=== PATIENT | male | born 1970 | race Caucasian/White ===

== ENCOUNTER 2023-01-12 08:52 | Emergency (ER) | payer SELFPAY ==
[2023-01-12 08:59] VITALS: BP 162/75; PULSE 76; RESP 16; TEMP 36.5; O2SAT 99
--- NOTE | 2023-01-12 09:14 | ED_ITS ---
Documented by User: BRENNON Rivera 01/12/23 12:00 HPI - Skin/Abscess/Foreign Bdy General: Chief complaint: Skin/Abscess/Foreign Body Stated complaint: Cracked skin Time Seen by Provider: 01/12/23 09:08 Source: patient Mode of arrival: ambulatory Limitations: no limitations History of Present Illness: Patient is a very nice 52-year-old male who presents to ED today along with his for concerns of a skin rash/skin changes. Patient states a few months ago he began noticing some intermittent/sporadic areas of dry skin/flaking that he would often itch/scratch. He states it seemed to respond well to [id number] hydrocortisone cream. He states over the past week or so he has began noticing a diffuse erythematous, painful, skin sloughing and blistering rash. No systemic symptoms. He has not had any new medications. He has no known past medical history. No concerning environmental exposures such as chemicals, pesticides, etc. MD complaint: rash and lesion Onset (ago): day(s) Tetanus up to date: yes Location: generalized Severity: severe Quality: burning, constant and pruritic Pain Consistency: constant Relieving factors: none Exacerbating factors: none Context: none Associated symptoms: Reports no associated symptoms; Deny chills or fever(s) Treatments prior to arrival: OTC topical medication Review of Systems Const: Denies: fever(s), chills, body aches, fatigue or malaise Card: Denies: chest pain Resp: Denies: dyspnea GI: Denies: abdominal pain Musc: Denies: neck pain, back pain, extremity pain or joint pain Skin/Breast: Reports: rash, erythema, skin pain, skin tenderness, new lesions, changing lesions and changes in skin color Neuro: Denies: headache(s), numbness in extremities, weakness in extremities, sensory changes or dizziness Physical Exam Const: COMMON NORMALS: no acute distress, average body habitus, patient oriented x3, no limitations, healthy appearing, alert and well nourished GENERAL APPEARANCE: cooperative ORIENTATION/CONSCIOUSNESS: Yes awake, Yes oriented to person, Yes oriented to place and Yes oriented to time HENMT: COMMON NORMALS: normocephalic and atraumatic HEAD & SCALP: normal to inspection, normocephalic and atraumatic FACE & SINUS: normal facial exam (a part from skin flaking) MOUTH: Normal oral and palatal mucosa present, lip normal, tongue normal and other (no intraoral involvement noted) Eye: GENERAL EYE: appearance normal, both eyes and all related structures Neck/C-Spine: COMMON NORMALS: no lymphadenopathy Resp: COMMON NORMALS: normal respiratory effort and clear to auscultation bilaterally AUSCULTATION: clear to auscultation bilaterally Cardio: COMMON NORMALS: regular rate and regular rhythm RATE: regular rate RHYTHM: regular rhythm Extremity: COMMON NORMALS: full ROM, capillary refill normal and no pedal edema NARRATIVE EXTREMITY EXAM: see skin documentation below GENERAL: Yes normal exam except as noted Neuro: GREG COMA SCALE: document GCS findings [place] coma scale eye opening: Spontaneous Greg coma scale verbal response: Orientated [place] coma scale motor response: Obey commands [place] coma scale total score: 15 COMMON NORMALS: patient oriented x3, moves all extremities, no focal motor deficits and no sensory deficits noted SENSORIUM/ORIENTATION: Yes alert, Yes oriented to person, Yes oriented to place and Yes oriented to time SPEECH: speech normal Skin: NARRATIVE SKIN EXAM: Patient has a generalized erythematous rash with various skin abnormalities. Ra sh on his trunk appears maculopapular/morbilliform. His rash to his bilateral lower extremities consists of diffuse desquamation with large bulla formation to plantar surfaces-many of these have already sloughed. He has diffuse scaling to scaling/plaque. desquamation RASHES: rashes noted Course Consultations: Consultation #1: Dr. Méndez-several images of patient's rash were sent to Dr. Méndez for review; she felt if patient appeared clinically well with no significant abnormalities on blood work he could be discharged with a pound jar of triamcinolone and steroid taper and she will see on Saturday as a work in for skin biopsy Vital Signs: Vital signs: Vital Signs Temperature 97.7 F 01/12/23 08:59 Pulse Rate 76 01/12/23 08:59 Respiratory Rate 16 01/12/23 08:59 Blood Pressure 162/75 01/12/23 08:59 Pulse Oximetry 99 01/12/23 08:59 Oxygen Delivery Me thod 01/12/23 08:59 MDM - Skin/Abscess/Foreign Bdy Medicial Decision Making Patient is a 52-year-old male here for a generalized desquamatous rash. He clinically states he feels normal . Vital signs are normal-he is not tachycardic or febrile. White count is scantly elevated at 10.7. Patient's coags and chemistry panel are normal. CRP is significantly elevated at 106.9. Discussed with commissary steward Dr. Méndez who recommended placing patient on topical and oral steroids. I did give patient the option to come into the spital but patient declines. Strict return ED precautions given between now and when he sees Dr. Méndez on Saturday. Patient and verbalized understanding of this. Lab Data 01/12/23 10:05 01/12/23 10:05 Laboratory Results WBC 10.7 10^3/uL (4.0-10.0) H 01/12/23 10:05 RBC 5.08 10^6/uL (4.1-5.3) 01/12/23 10:05 Hgb 15.6 g/dL (11.7-16.6) 01/12/23 10:05 Hct 46.7 % (42.0-52.0) 01/12/23 10:05 MCV 91.9 fl (80-94) 01/12/23 10:05 MCH 30.7 pg (28.0-34.0) 01/12/23 10:05 MCHC 33.4 g/dL (30.0-36.0) 01/12/23 10:05 RDW 12.4 % (12.1-15.1) 01/12/23 10:05 Plt Count 220 10^3/cmm (130-400) 01/12/23 10:05 MPV 10.2 fL (7.4-10.4) 01/12/23 10:05 Neut % (Auto) 72.8 % 01/12/23 10:05 Lymph % (Auto) 13.8 % 01/12/23 10:05 Forrest % (Auto) 7.7 % 01/12/23 10:05 Eos % (Auto) 4.8 % 01/12/23 10:05 Baso % (Auto) 0.5 % 01/12/23 10:05 Neut # (Auto) 7.80 10^3/uL (1.8-7.7) H 01/12/23 10:05 Lymph # (Auto) 1.5 10^3/uL (0.8-4.8) 01/12/23 10:05 Forrest # (Auto) 0.8 10^3/uL (0.2-0.9) 01/12/23 10:05 Eos # (Auto) 0.5 10^3/uL (0.0-0.8) 01/12/23 10:05 Baso # (Auto) 0.1 10^3/uL (0.0-0.1) 01/12/23 10:05 Nucleated RBC % (auto) 0 % 01/12/23 10:05 Nucleated RBCs # 0.0 /100WBC 01/12/23 10:05 PT 13.30 SECONDS (12.1-14.9) 01/12/23 10:05 INR 0.98 (0.8-1.2) 01/12/23 10:05 APTT 28.4 SECONDS (23.9-36.7) 01/12/23 10:05 Sodium 134 mmol/L (136-145) L 01/12/23 10:05 Potassium 3.9 mmol/L (3.5-5.1) 01/12/23 10:05 Chloride 99 mmol/L (98-107) 01/12/23 10:05 Carbon Dioxide 23 mmol/L (22-29) 01/12/23 10:05 Anion Gap 15.9 (5-19) 01/12/23 10:05 BUN 7 mg/dL (6-20) 01/12/23 10:05 Creatinine 0.7 mg/dL (0.7-1.2) 01/12/23 10:05 GFR Calculation 118.4 mL/min (90-130) 01/12/23 10:05 Glucose 77 mg/dL (65-115) 01/12/23 10:05 Calculated Osmolality 275 mOsm/kg (285-295) L 01/12/23 10:05 Calcium 8.6 mg/dL (8.5-10.5) 01/12/23 10:05 Total Bilirubin 0.8 mg/dL (0.15-1.2) 01/12/23 10:05 AST 24 U/L (0-40) 01/12/23 10:05 ALT 24 U/L (0-41) 01/12/23 10:05 Alkaline Phosphatase 64 U/L (40-130) 01/12/23 10:05 C-Reactive Protein 106.9 mg/L (0.0-4.9) H 01/12/23 10:05 Total Protein 7.5 g/dL (6.6-8.7) 01/12/23 10:05 Albumin 3.8 g/dL (3.5-5.2) 01/12/23 10:05 Globulin 3.7 g/dL (1.3-4.6) 01/12/23 10:05 Discharge Plan Discharge Patient Disposition: Home Clinical Impression: Acute desquamative eruption of skin Condition: Stable Prescriptions: New triamcinolone acetonide 0.1 % cream 1 applic topical DAILY Qty: 454 0RF prednisone 10 mg tablet 10 mg PO DAILY 16 Days Qty: 71 0RF Rx Instructions: 6 tab on days 1-4, 5 tab on days 5-8, 4 tab on days 9-12, 3 tab on days 12- 13, 2 tab on days 14-15, 1 tab on day 16 hydrocodone-acetaminophen 5-325 mg tablet 1 tab PO Q6H PRN (Reason: pain) Qty: 15 0RF Discharge Orders: Discharge ED (Routine); Ordered 01/12/23 Ordered By: Anju Agrawal Referrals: Haylee Méndez DO [Physician] - Patient Instructions: Opioid Safety, Pain Management Activity Restrictions/Additional Instructions: As we discussed you need to arrive at [facility] at 8:00AM SaturdayJANUARY 14. Dr. Méndez will see you as a work in so be advised this may take a while to be seen. We need to see you here back in the emergency department immediately for any worsening in your skin condition, onset of fevers greater than 100.4, diffuse body aches, generally feeling worse or unwell, or any other concerns you may have. Coding Level of Care Code ED Contact Center Rep for Chg Fwd Documented by User: Cedric Mandujano DO 01/12/23 12:11 HPI - Skin/Abscess/Foreign Bdy General: Chief complaint: Skin/Abscess/Foreign Body Stated complaint: Cracked skin Time Seen by Provider: 01/12/23 09:08 Physical Exam Neuro: GREG COMA SCALE: document GCS findings Greg coma scale total score: 15 Course Vital Signs: Vital signs: Vital Signs Temperature 97.7 F 01/12/23 08:59 Pulse Rate 76 01/12/23 08:59 Respiratory Rate 16 01/12/23 08:59 Blood Pressure 162/75 01/12/23 08:59 Pulse Oximetry 99 01/12/23 08:59 Oxygen Delivery Me thod 01/12/23 08:59 MDM - Skin/Abscess/Foreign Bdy Medicial Decision Making Patient is a 52-year-old male here for a generalized desquamatous rash. He clinically states he feels normal . Vital signs are normal-he is not tachyc ardic or febrile. White count is scantly elevated at 10.7. Patient's coags and chemistry panel are normal. CRP is significantly elevated at 106.9. Discussed with commissary steward Dr. Méndez who recommended placing patient on topical and oral steroids. I did give patient the option to come into the hospital but patient declines. Strict return ED precautions given between now and when he sees Dr. Méndez on Saturday. Patient and verbalized understanding of this. Chart reviewed and patient discussed with midlevel. Agree with assessment and plan. Lab Data 01/12/23 10:05 01/12/23 10:05 Laboratory Results WBC 10.7 10^3/uL (4.0-10.0) H 01/12/23 10:05 RBC 5.08 10^6/uL (4.1-5.3) 01/12/23 10:05 Hgb 15.6 g/dL (11.7-16.6) 01/12/23 10:05 Hct 46.7 % (42.0-52.0) 01/12/23 10:05 MCV 91.9 fl (80-94) 01/12/23 10:05 MCH 30.7 pg (28.0-34.0) 01/12/23 10:05 MCHC 33.4 g/dL (30.0-36.0) 01/12/23 10:05 RDW 12.4 % (12.1-15.1) 01/12/23 10:05 Plt Count 220 10^3/cmm (130-400) 01/12/23 10:05 MPV 10.2 fL (7.4-10.4) 01/12/23 10:05 Neut % (Auto) 72.8 % 01/12/23 10:05 Lymph % (Auto) 13.8 % 01/12/23 10:05 Forrest % (Auto) 7.7 % 01/12/23 10:05 Eos % (Auto) 4.8 % 01/12/23 10:05 Baso % (Auto) 0.5 % 01/12/23 10:05 Neut # (Auto) 7.80 10^3/uL (1.8-7.7) H 01/12/23 10:05 Lymph # (Auto) 1.5 10^3/uL (0.8-4.8) 01/12/23 10:05 Forrest # (Auto) 0.8 10^3/uL (0.2-0.9) 01/12/23 10:05 Eos # (Auto) 0.5 10^3/uL (0.0-0.8) 01/12/23 10:05 Baso # (Auto) 0.1 10^3/uL (0.0-0.1) 01/12/23 10:05 Nucleated RBC % (auto) 0 % 01/12/23 10:05 Nucleated RBCs # 0.0 /100WBC 01/12/23 10:05 PT 13.30 SECONDS (12.1-14.9) 01/12/23 10:05 INR 0.98 (0.8-1.2) 01/12/23 10:05 APTT 28.4 SECONDS (23.9-36.7) 01/12/23 10:05 Sodium 134 mmol/L (136-145) L 01/12/23 10:05 Potassium 3.9 mmol/L (3.5-5.1) 01/12/23 10:05 Chloride 99 mmol/L (98-107) 01/12/23 10:05 Carbon Dioxide 23 mmol/L (22-29) 01/12/23 10:05 Anion Gap 15.9 (5-19) 01/12/23 10:05 BUN 7 mg/dL (6-20) 01/12/23 10:05 Creatinine 0.7 mg/dL (0.7-1.2) 01/12/23 10:05 GFR Calculation 118.4 mL/min (90-130) 01/12/23 10:05 Glucose 77 mg/dL (65-115) 01/12/23 10:05 Calculated Osmolality 275 mOsm/kg (285-295) L 01/12/23 10:05 Calcium 8.6 mg/dL (8.5-10.5) 01/12/23 10:05 Total Bilirubin 0.8 mg/dL (0.15-1.2) 01/12/23 10:05 AST 24 U/L (0-40) 01/12/23 10:05 ALT 24 U/L (0-41) 01/12/23 10:05 Alkaline Phosphatase 64 U/L (40-130) 01/12/23 10:05 C-Reactive Protein 106.9 mg/L (0.0-4.9) H 01/12/23 10:05 Total Protein 7.5 g/dL (6.6-8.7) 01/12/23 10:05 Albumin 3.8 g/dL (3.5-5.2) 01/12/23 10:05 Globulin 3.7 g/dL (1.3-4.6) 01/12/23 10:05 Discharge Plan Discharge Patient Disposition: Home Clinical Impression: Acute desquamative eruption of skin Condition: Stable Prescriptions: New triamcinolone acetonide 0.1 % cream 1 applic topical DAILY Qty: 454 0RF prednisone 10 mg tablet 10 mg PO DAILY 16 Days Qty: 71 0RF Rx Instructions: 6 tab on days 1-4, 5 tab on days 5-8, 4 tab on days 9-12, 3 tab on days 12- 13, 2 tab on days 14-15, 1 tab on day 16 hydrocodone-acetaminophen 5-325 mg tablet 1 tab PO Q6H PRN (Reason: pain) Qty: 15 0RF Discharge Orders: Discharge ED (Routine); Ordered 01/12/23 Ordered By: Anju Agrawal Referrals: Haylee Méndez DO [Physician] - Patient Instructions: Opioid Safety, Pain Management Activity Restrictions/Additional Instructions: As we discussed you need to arrive at [facility] at 8:00AM SaturdayJANUARY 14. Dr. Méndez will see you as a work in so be advised this may take a while to be seen. We need to see you here back in the emergency department immediately for any worsening in your skin condition, onset of fevers greater than 100.4, diffuse body aches, generally feeling worse or unwell, or any other concerns you may have. Coding Level of Care Code ED Contact Center Rep for Nithya Winkler
[2023-01-12 10:32] LABS: Basophils # 0.1 10^3/uL (0.0-0.1); Basophils % 0.5 %; Eosinophils # 0.5 10^3/uL (0.0-0.8); Eosinophils % 4.8 %; Hematocrit 46.7 % (42.0-52.0); Hemoglobin 15.6 g/dL (11.7-16.6); Lymphocytes # 1.5 10^3/uL (0.8-4.8); Lymphocytes % 13.8 %; Mean Corpuscular HGB Conc 33.4 g/dL (30.0-36.0); Mean Corpuscular Hemoglobin 30.7 pg (28.0-34.0); Mean Corpuscular Volume 91.9 fl (80-94); Mean Platelet Volume 10.2 fL (7.4-10.4); Monocytes # 0.8 10^3/uL (0.2-0.9); Monocytes % 7.7 %; Neutrophils % 72.8 %; Nucleated Red Blood Cells % 0 %; Platelet Count 220 10^3/cmm (130-400); Red Blood Count 5.08 10^6/uL (4.1-5.3); Red Cell Distribution Width 12.4 % (12.1-15.1); White Blood Count 10.7 10^3/uL (4.0-10.0)
[2023-01-12 10:41] LABS: INR 0.98 (0.8-1.2)
[2023-01-12 10:42] LABS: Partial Thromboplastin Time 28.4 SECONDS (23.9-36.7)
[2023-01-12 10:49] LABS: Alanine Aminotransferase 24 U/L (0-41); Albumin Level 3.8 g/dL (3.5-5.2); Alkaline Phosphatase 64 U/L (40-130); Anion Gap 15.9 (5-19); Aspartate Amino Transferase 24 U/L (0-40); Blood Urea Nitrogen 7 mg/dL (6-20); C Reactive Protein 106.9 mg/L (0.0-4.9); Calcium 8.6 mg/dL (8.5-10.5); Carbon Dioxide 23 mmol/L (22-29); Chloride 99 mmol/L (98-107); Globulin 3.7 g/dL (1.3-4.6); Glomerular Filtration Rate 118.4 mL/min (90-130); Glucose 77 mg/dL (65-115); Osmolality Calculated 275 mOsm/kg (285-295); Potassium 3.9 mmol/L (3.5-5.1); Sodium 134 mmol/L (136-145); Total Bilirubin 0.8 mg/dL (0.15-1.2); Total Protein 7.5 g/dL (6.6-8.7)
[2023-01-12] MEDS: morphine 4 mg/mL SDV 1 mL IM (11:22)
--- NOTE | 2023-01-17 14:09 | DCPLANNER ---
occupational therapist rehab manager called patient due to no primary care physician - no answer at this time
== END 2023-01-12 11:53 | disposition home or self-care (01) ==
PROVIDERS: Emergency Provider Physician Assistant
DX: R23.4 Changes in skin texture (principal)
CPT/HCPCS: 36415; 80053; 85025; 85610; 85730; 86140; 87040; 96372; 99284; J2270

== ENCOUNTER 2023-01-25 07:48 | Outpatient (CLI) | payer SELFPAY ==
[2023-01-25 09:19] LABS: Hepatitis A Antibody IgM Non-Reactive (Nonreactive); Hepatitis B Core AB, Total Non-Reactive (Nonreactive); Hepatitis B Surface AB 3.5 (11.5-1000); Hepatitis B Surface Antigen Non-Reactive (Nonreactive); Hepatitis C Virus Antibody Non-Reactive (Nonreactive)
[2023-01-25 09:21] LABS: HIV 1 & 2 Antibody Non-Reactive (Non-Reactiv); HIV 1 & 2 Antigen Non-Reactive (Non-Reactiv)
[2023-01-28 12:08] LABS: Quantiferon Mitogen 9.94 IU/mL; Quantiferon Nil 0.01 IU/mL; Quantiferon TB Gold NEGATIVE (NEGATIVE)
== END 2023-01-25 07:49 | disposition home or self-care (01) ==
PROVIDERS: Visit Provider Dermatology
DX: L44.0 Pityriasis rubra pilaris (principal); Z79.899 Other long term (current) drug therapy
CPT/HCPCS: 86480; 86705; 86706; 86709; 86803; 87340; 87806